=== PATIENT | female | born 1990 | race African-American/Black ===

== ENCOUNTER 2019-03-11 19:46 | Emergency (ER) | payer SELFPAY ==
[2019-03-11 20:03] VITALS: BP 111/75; PULSE 84; TEMP 98.1; BMI 27.2
--- NOTE | 2019-03-11 21:02 | PDOC ---
Attending Attestation - Resident Resident Name: NaomiDavid - ED Attending Attestation I have performed the following: I have examined & evaluated the patient, The case was reviewed & discussed with the resident, I agree w/resident's findings & plan - HPI HPI: 03/11/19 23:10 see resident hpi - Physicial Exam PE: 03/11/19 23:10 see resident exam 03/11/19 23:10 - Medical Decision Making 03/11/19 23:10 28-year-old female with reflux symptoms as well as diarrhea and abdominal cramping Patient failed to improve after IV fluids antacids and antiemetics Plan for CT scan of the abdomen and pelvis due to persistent bilateral lower quadrant tenderness Zofran for additional antiemetic Likely DC home pending CT scan results
[2019-03-11] MEDS ORDERED: METOCLOPRAMIDE HCL INJECTION 10 MG/2 ML VIAL IVPUSH ONE (21:11)
[2019-03-11] MEDS ORDERED: FAMOTIDINE 20 MG/50 ML IVPB 20 MG/50 ML MG IVPB ONE ×2 (21:11→21:16)
[2019-03-11] MEDS ORDERED: MAG HYDROX/AL HYDROX/SIMETH 30 ML UNIT-DOSE CUP PO ONE (21:11)
[2019-03-11] MEDS ORDERED: METOCLOPRAMIDE HCL INJECTION 10 MG/2 ML VIAL ONE (21:16)
[2019-03-11] MEDS ORDERED: MAG HYDROX/AL HYDROX/SIMETH 30 ML UNIT-DOSE CUP ONE (21:16)
[2019-03-11 22:12] LABS: BASO % 0.9 % (0-2.0); HEMATOCRIT 47.4 % (32.4-45.2); HEMOGLOBIN 15.3 GM/dL (10.7-15.3); LYMPH % 27.4 % (8-40); MCHC 32.3 g/dl (32.0-36.0); MEAN CELL VOLUME 92.8 fl (80-96); MEAN PLT VOLUME 9.3 fl (7.5-11.1); MONO % 9.8 % (3.8-10.2); NEUT % 60.9 % (42.8-82.8); PLATELET COUNT 284 K/MM3 (134-434); RBC 5.11 M/mm3 (3.60-5.2); RDW 13.2 % (11.6-15.6); WHITE BLOOD COUNT 5.4 K/mm3 (4.0-10.0)
[2019-03-11 22:30] LABS: EPI CELLS 8.6 /HPF (0-5/HPF); HYALINE CASTS 27 /lpf (0-8); URINE APPEARANCE CLOUDY; URINE BACTERIA 190.1 /hpf (NEGATIVE); URINE BILIRUBIN 1+ (NEGATIVE); URINE COLOR DK YELLOW; URINE GLUCOSE (UA) NEGATIVE (NEGATIVE); URINE KETONE 4+ (NEGATIVE); URINE LEUK ESTERASE NEGATIVE (NEGATIVE); URINE NITRITE NEGATIVE (NEGATIVE); URINE PROTEIN 1+ (NEGATIVE); URINE RBC 4 /hpf (0-4)
[2019-03-11 22:41] LABS: ALBUMIN 4.5 g/dl (3.4-5.0); BILIRUBIN,TOTAL 0.6 mg/dL (0.2-1); BLOOD UREA NITROGEN 14.6 mg/dL (7-18); CALCIUM 9.8 mg/dL (8.5-10.1); CREATININE 0.9 mg/dL (0.55-1.3); POTASSIUM 3.2 mmol/L (3.5-5.1); TOT PROT 8.2 g/dl (6.4-8.2)
[2019-03-11] MEDS ORDERED: ONDANSETRON 4 MG/2 ML VIAL IVPUSH ONE (23:02)
[2019-03-11] MEDS ORDERED: SODIUM CHLORIDE 1,000 ML IV STA (23:02)
[2019-03-11] MEDS ORDERED: morphine CARPU-JECT 2 MG/1 ML DISP.SYRIN IVPUSH ONE (23:05)
--- NOTE | 2019-03-11 23:16 | PDOC ---
History of Present Illness - General Chief Complaint: Pain Stated Complaint: ABDOMINAL/CHEST PAIN Time Seen by Provider: 03/11/19 20:50 - History of Present Illness Initial Comments: 03/11/19 23:15 28f with no pmh presents to the ED with nausea and epigastric pain for the past few days, complaining of two episodes of diarrhea, last one was this morning, previous one was 2 days ago. Admits to reflux pain over the chest. Denies vomiting, fever, chills. Didn't try any medication. Past History - Past Medical History Allergies/Adverse Reactions: Allergies Allergy/AdvReac Type Severity Reaction Status Date / Time NSAIDS (Non-Steroidal Allergy Unknown Verified 04/06/16 13:27 Anti-Inflamma ibuprofen [From Motrin] Allergy Verified 04/06/16 12:47 Home Medications: Ambulatory Orders NK [No Known Home Medication] 04/06/16 Anemia: No Asthma: No Cancer: No Cardiac Disorders: No CVA: No COPD: No CHF: No Dementia: No Diabetes: No GI Disorders: No Disorders: No HTN: No Hypercholesterolemia: No Liver Disease: No Seizures: No Thyroid Disease: No - Immunization History Immunization Up to Date: Yes - Psycho Social/Smoking Cessation Hx Smoking Status: No Smoking History: Never smoked Have you smoked in the past 12 months: No Number of Cigarettes Smoked Daily: 0 Hx Alcohol Use: No Drug/Substance Use Hx: No Substance Use Type: None Review of Systems - Review of Systems Able to Perform ROS?: Yes Is the patient limited Bahamian proficient: No Constitutional: No: Symptoms Reported HEENTM: No: Symptoms Reported Respiratory: No: Symptoms reported Cardiac (ROS): No: Symptoms Reported ABD/GI: Yes: See HPI : No: Symptoms Reported Musculoskeletal: No: Symptoms Reported Integumentary: No: Symptoms Reported Neurological: No: Symptoms reported All Other Systems: Reviewed and Negative *Physical Exam - Vital Signs Last Vital Signs Temp Pulse Resp BP Pulse Ox 98.1 F 84 19 111/75 100 03/11/19 20:03 03/11/19 20:00 03/11/19 20:03 03/11/19 20:00 03/11/19 20:03 - Physical Exam General Appearance: Yes: Nourished, Appropriately Dressed, Mild Distress HEENT: positive: EOMI, SOURAV, Normal ENT Inspection Respiratory/Chest: positive: Lungs Clear, Normal Breath Sounds. negative: Chest Tender, Respiratory Distress Cardiovascular: positive: Regular Rhythm, Regular Rate, S1, S2 Gastrointestinal/Abdominal: positive: Normal Bowel Sounds, Tender (epigastric), Flat, Soft Musculoskeletal: positive: Normal Inspection. negative: CVA Tenderness Integumentary: positive: Normal Color, Dry, Warm ED Treatment Course - LABORATORY CBC & Chemistry Diagram: 03/11/19 21:20 03/11/19 21:20 - ADDITIONAL ORDERS Additional order review: Laboratory Results 03/11/19 03/11/19 03/11/19 21:20 21:20 21:20 Sodium Potassium Chloride Carbon Dioxide Anion Gap BUN Creatinine Est GFR (CKD-EPI)AfAm Est GFR (CKD-EPI)NonAf Random Glucose Calcium Total Bilirubin AST ALT Alkaline Phosphatase Troponin I < 0.02 Total Protein Albumin Urine Color Dk yellow Urine Appearance Cloudy Urine pH 6.0 Ur Specific [place] 1.032 Urine Protein 1+ H Urine Glucose (UA) Negative Urine Ketones 4+ H Urine Blood Negative Urine Nitrite Negative Urine Bilirubin 1+ H Urine Urobilinogen 1.0 Ur Leukocyte Esterase Negative Urine RBC (Auto) 4 Urine Casts (Auto) 27 U Epithel Cells (Auto) 8.6 Urine Bacteria (Auto) 190.1 Urine HCG, Qual Negative 03/11/19 21:20 Sodium 139 Potassium 3.2 L Chloride 102 Carbon Dioxide 28 Anion Gap 9 BUN 14.6 Creatinine 0.9 Est GFR (CKD-EPI)AfAm 102.28 Est GFR (CKD-EPI)NonAf 88.25 Random Glucose 89 Calcium 9.8 Total Bilirubin 0.6 AST 14 L ALT 19 Alkaline Phosphatase 75 Troponin I Total Protein 8.2 Albumin 4.5 Urine Color Urine Appearance Urine pH Ur Specific [place] Urine Protein Urine Glucose (UA) Urine Ketones Urine Blood Urine Nitrite Urine Bilirubin Urine Urobilinogen Ur Leukocyte Esterase Urine RBC (Auto) Urine Casts (Auto) U Epithel Cells (Auto) Urine Bacteria (Auto) Urine HCG, Qual 03/11/19 21:20 RBC 5.11 MCV 92.8 MCHC 32.3 RDW 13.2 MPV 9.3 D Neutrophils % 60.9 Lymphocytes % 27.4 D Monocytes % 9.8 Eosinophils % 1.0 Basophils % 0.9 - RADIOLOGY Radiology Studies Ordered: Category Date Time Status ABDOMEN & PELVIS CT WITH CONTR [CT] Stat CT Scan 03/11/19 23:05 Ordered - Medications Given in the ED: ED Medications Discontinued Medications Generic Name Dose Route Start Last Admin Trade Name Dane PRN Reason Stop Dose Admin Al Hydroxide/Mg Hydroxide 30 ml 03/11/19 21:11 03/11/19 21:19 Mylanta Oral Suspension - PO 03/11/19 21:12 30 ml ONCE ONE Administration Famotidine/Sodium Chloride 20 mg in 50 mls @ 100 mls/hr 03/11/19 21:11 21:19 Pepcid 20 Mg Premixed Ivpb - IVPB 03/11/19 21:40 100 mls/hr ONCE ONE Administration Metoclopramide HCl 10 mg 03/11/19 21:11 03/11/19 21:19 Reglan Injection - IVPUSH 03/11/19 21:12 10 mg ONCE ONE Administration Medical Decision Making - Medical Decision Making 03/11/19 23:24 28f with no pmh presents to the ED with nausea and epigastric pain for the past few days, complaining of two episodes of diarrhea, last one was this morning, previous one was 2 days ago. No relief after reglan, pepcid and maalox. Will give fluids and zofran and scan abdomen pelvis with IV contrast. 03/12/19 00:07 Patient signed out to Dr Wade Discharge - Discharge Information Problems reviewed: Yes Clinical Impression/Diagnosis: Epigastric abdominal pain - Follow up/Referral - Patient Discharge Instructions - Post Discharge Activity
[2019-03-11] MEDS ORDERED: MORPHINE SULFATE 2 MG/ML VIAL ONE (23:33)
[2019-03-11] MEDS ORDERED: ONDANSETRON 4 MG/2 ML VIAL ONE (23:33)
[2019-03-11 23:46] LABS: URINE WBC 10.5 /hpf (0-5)
--- NOTE | 2019-03-12 11:05 | EKG ---
Test Reason : Blood Pressure : / mmHG Vent. Rate : 062 BPM Atrial Rate : 062 BPM P-R Int : 180 ms QRS Dur : 070 ms QT Int : 426 ms P-R-T Axes : 096 067 023 degrees QTc Int : 432 ms NORMAL SINUS RHYTHM NONSPECIFIC T WAVE ABNORMALITY ABNORMAL ECG WHEN COMPARED WITH ECG OF 06-APR-2016 13:08, INVERTED T WAVES HAVE REPLACED NONSPECIFIC T WAVE ABNORMALITY IN ANTERIOR LEADS Confirmed by Anjel Bedoya MD ([id number]) on 03/12/2019 11:04:56 AM Referred By: Confirmed By:Anjel Bedoya MD
== END 2019-03-12 02:16 | disposition home or self-care (01) ==
LOC: JER 19:46
PROC: 3E033GC Introduction of Other Therapeutic Substance into Peripheral Vein, Percutaneous Approach (ICD-10-PCS; principal; 2019-03-11)
PROC: 3E033NZ Introduction of Analgesics, Hypnotics, Sedatives into Peripheral Vein, Percutaneous Approach (ICD-10-PCS; 2019-03-11)
PROC: 3E033GC Introduction of Other Therapeutic Substance into Peripheral Vein, Percutaneous Approach (ICD-10-PCS; 2019-03-11)
PROC: 3E033GC Introduction of Other Therapeutic Substance into Peripheral Vein, Percutaneous Approach (ICD-10-PCS; 2019-03-11)
DX: R10.13 Epigastric pain (principal); K21.9 Gastro-esophageal reflux disease without esophagitis; Z88.6 Allergy status to analgesic agent
CPT/HCPCS: 36415; 74177-TC; 80053; 81003; 84484; 84703; 85025; 87077; 87086; 93005; 93010; 99284-25; J7030

== ENCOUNTER 2020-08-04 18:36 | Emergency (ER) | payer SELFPAY ==
[2020-08-04 18:45] VITALS: BP 112/72; PULSE 93; TEMP 97.8; BMI 27.4
[2020-08-04] MEDS ORDERED: SODIUM CHLORIDE 1,000 ML IV STA (19:04)
[2020-08-04] MEDS ORDERED: ONDANSETRON 4 MG/2 ML VIAL IVPB ONE (19:04)
[2020-08-04] MEDS ORDERED: ACETAMINOPHEN 1000 MG/100 ML VIAL (NON FORMULARY) IVPB ONE (19:31)
[2020-08-04] MEDS ORDERED: ONDANSETRON 4 MG/2 ML VIAL ONE (20:04)
[2020-08-04] MEDS ORDERED: ACETAMINOPHEN INJECTION 100 ML IVPB ONE (20:04)
== END 2020-08-04 20:15 | disposition left against medical advice (07) ==
LOC: JER 18:36
PROC: 3E0333Z Introduction of Anti-inflammatory into Peripheral Vein, Percutaneous Approach (ICD-10-PCS; principal; 2020-08-04)
PROC: 3E033GC Introduction of Other Therapeutic Substance into Peripheral Vein, Percutaneous Approach (ICD-10-PCS; 2020-08-04)
PROC: 3E0337Z Introduction of Electrolytic and Water Balance Substance into Peripheral Vein, Percutaneous Approach (ICD-10-PCS; 2020-08-04)
DX: R10.9 Unspecified abdominal pain (principal)
CPT/HCPCS: 96361; 96374; 96375; 99284-25

== ENCOUNTER 2020-11-25 16:21 | Emergency (ER) | payer SELFPAY ==
[2020-11-25 16:34] VITALS: BP 101/68; PULSE 85; TEMP 98.2; BMI 26.5
== END 2020-11-25 18:10 | disposition home or self-care (01) ==
LOC: JERFT 16:21
DX: K64.9 Unspecified hemorrhoids (principal)
CPT/HCPCS: 99281-25